=== PATIENT | male | born 1950 | race Caucasian/White ===

== ENCOUNTER 2021-02-19 06:58 | Day surgery (SDC) | payer MEDICARE ==
[2021-02-12 15:45] LABS: ALBUMIN 3.8 G/DL (3.4-5.0); ALBUMIN/GLOBULIN RATIO 1.1 (1.1-1.5); ALKALINE PHOSPHATASE 42 IU/L (46-116); BLOOD UREA NITROGEN 16 MG/DL (7-18); BUN/CREATININE RATIO 16.5 (5.4-32.0); CALCIUM 8.8 MG/DL (8.5-10.1); CHLORIDE 106 MMOL/L (99-107); CREATININE 0.97 MG/DL (0.60-1.10); PRE OP ALT 27 U/L (30-65); PRE OP ANION GAP 6 (8-16); PRE OP AST 19 U/L (10-37); PRE OP BILIRUB, TOTAL 0.3 MG/DL (0.0-1.0); PRE OP GLUCOSE 105 MG/DL (70-104); PRE OP POTASSIUM 4.4 MMOL/L (3.4-5.1); PRE OP SODIUM 143 MMOL/L (135-145); TOTAL CARBON DIOXIDE 31.3 MMOL/L (24-32); TOTAL PROTEIN 7.2 G/DL (6.4-8.2); eGFR 76 ML/MIN
[2021-02-12 15:46] LABS: LYMPHOCYTES # (AUTO) 1.1 X10'3 (1.1-4.8); LYMPHOCYTES % (AUTO) 27.5 % (21-51); MEAN CORPUSCULAR HEMOGLOBIN 30.1 PG (27.0-31.0); MEAN CORPUSCULAR HGB CONC 33.1 g/dL (33.0-36.5); MEAN CORPUSCULAR VOLUME 91.1 FL (78-98); MEAN PLATELET VOLUME 7.5 FL (7.4-10.4); MONOCYTES # (AUTO) 0.3 X10'3 (0-0.9); MONOCYTES % (AUTO) 6.7 % (2-12); NEUTROPHILS # (AUTO) 2.5 X10'3 (1.8-7.7); NEUTROPHILS % (AUTO) 63.8 % (42-75); PRE OP HEMOGLOBIN 14.2 g/dL (14.0-17.9); PRE OP PLATELET COUNT 225 X10'3 (140-440); RED BLOOD COUNT 4.72 X10'6 (4.70-6.10); RED CELL DISTRIBUTION WIDTH 13.3 % (11.5-14.5)
[~2021-02-19] VITALS: Ht 177.8 cm; Wt 72.3 kg
[~2021-02-19 06:58] MED LIST: ACET-2319 PO; CHOL20004 PO; KRIL1CAP6 PO; MULT-1141 PO; NAPR500T6 PO; SIMV-42 PO; cefazolin/dext.iso 2gm/100ml IV ONE; famotidine 20mg tablet PO ONE; ringers solution, lacted 1,000 ML IV SCH
[2021-02-19] MEDS ORDERED: BUPIVAcaine/PF 2.5 mg/ml (0.25%) 30ml vial ONE (07:06)
[2021-02-19] MEDS ORDERED: LIDOcaine 1% 30ml preserv. free vial ONE (07:21)
[2021-02-19 07:30] VITALS: BP 143/89
[2021-02-19] MEDS ORDERED: fentaNYL/PF 50MCG/1 ML 2ML syringe ONE (08:48)
[2021-02-19] MEDS ORDERED: MIDAZolam 1 MG/ML 5ML VIAL ONE (08:48)
[2021-02-19] MEDS ORDERED: ketorolac trometh. 30mg/ml inj. ONE (09:16)
[2021-02-19 09:50] VITALS: BP 139/87
--- NOTE | 2021-02-19 09:50 | NUR ---
Received from OR via [facility] IN STABLE CONDITION , accompanied by Anesthesiologist and SHINGLE CATCHER report given by Qing. Addendum: 02/19/21 at 1021 by Kamilla Jensen RN Amended: Links added.
[2021-02-19 10:00] VITALS: BP 154/102
[2021-02-19 10:10] VITALS: BP 143/97
[2021-02-19 10:20] VITALS: BP 152/89
--- NOTE | 2021-02-19 10:40 | NUR ---
PATIENT DISCHARGED FROM PACU IN STABLE CONDITION AFTER VERBAL AND WRITTEN DISCHARGE INSTRUCTIONST GIVEN. PATIENT GAVE VERBAL UNDERSTANDING OF INSTRUCTIONS GIVEN. PATIENT LEFT FACILITY VIA WHEELCHAIR WITH VOLUNTEER. Addendum: 02/19/21 at 1046 by Kamilla Jensen RN Amended: Links added.
== END 2021-02-19 10:40 | disposition home or self-care (01) ==
LOC: PAS 06:58
PROVIDERS: ATTEND Orthopaedic Surgery Hand Surgery
DX: M72.0 Palmar fascial fibromatosis [Dupuytren] (principal); E78.5 Hyperlipidemia, unspecified; Z98.890 Other specified postprocedural states; Z86.73 Personal history of transient ischemic attack (TIA), and cerebral infarction without residual deficits; Z79.899 Other long term (current) drug therapy; Z72.89 Other problems related to lifestyle
CPT/HCPCS: 26123; 36415; 80053; 82948; 85025; 93005; A6222; J1885; J2001; J2250; J3010; J3490; J7120; A4215; A4618; A6449; A7000